=== PATIENT | female | born 1940 | race Hispanic/Latino ===

== ENCOUNTER 2016-04-25 06:27 | Observation (INO) | payer MEDICARE, OTHER ==
--- NOTE | 2016-04-23 14:47 | Anesthesia Consultation ---
Anesthesia Consult and Med Hx Date of service: 04/23/16 - Airway Anesthetic Teeth Evaluation: Partials (upper and lower) ROM Head & Neck: Adequate Mental/Hyoid Distance: Adequate Mallampati Class: Class I Intubation Access Assessment: Good - Pre-Operative Health Status ASA Pre-Surgery Classification: ASA2 Proposed Anesthetic Plan: Epidural, Spinal Nerve Block: Femoral - Pulmonary Hx Smoking: No Hx Sleep Apnea: No (RASHAWN PRE SCREEN LOW RISK) - Cardiovascular System Hx Hypertension: No Hx Coronary Artery Disease: No (high cholesterol, no meds) Hx Cardia Arrhythmia: Yes (occasional palpitations) - Central Nervous System Hx Psychiatric Problems: Yes (rare panic attacks) - Gastrointestinal Hx Gastroesophageal Reflux Disease: Yes (takes Zantac) - Other Systems Hx Cancer: Yes (h/o cervical CA 1998)
[~2016-04-25 06:27] MED LIST: VANCOMYCIN/NS 1 GM/250 ML 1 GM/250 ML BAG IV NR
[2016-04-25] MEDS ORDERED: NACL BACTERIOSTATIC INFILTRATI ONE (06:56)
[2016-04-25] MEDS ORDERED: VERSED IV NR ×2 (07:00→08:19)
[2016-04-25] MEDS ORDERED: PEPCID IV NR (07:00)
[2016-04-25] MEDS ORDERED: NEURONTIN PO NR (07:00)
[2016-04-25] MEDS ORDERED: LACTATED RINGERS 1,000 ML IV SCH (07:00)
[2016-04-25] MEDS ORDERED: MARCAINE-EPI 0.5%-1:200,000 INFILTRATI ONE ×5 (07:41→09:25)
[2016-04-25] MEDS ORDERED: DECADRON ONE (07:42)
[2016-04-25] MEDS ORDERED: CLONIDINE 1,000 MCG/10 ML VIAL EP ONE (07:50)
[2016-04-25] MEDS ORDERED: TRANEXAMIC ACID 1,000 MG in NACL 0.9% 100 ML IV NR (08:00)
[2016-04-25] MEDS ORDERED: DIPRIVAN 10 MG/ML 1,000 MG/100 ML BOTTLE IV ONE ×2 (08:33)
[2016-04-25] MEDS ORDERED: DIPRIVAN 10 MG/ML IV ONE (08:40)
[2016-04-25] MEDS ORDERED: ZOFRAN ONE (08:42)
[2016-04-25] MEDS ORDERED: HEPARIN 10,000 UNITS/10 ML ONE (08:54)
[2016-04-25] MEDS ORDERED: XYLOCAINE MPF 2% ONE ×3 (09:06→10:05)
[2016-04-25] MEDS ORDERED: NEOSPORIN GU IR ONE (09:33)
[2016-04-25] MEDS ORDERED: ADRENALIN ONE (09:47)
[2016-04-25] MEDS ORDERED: ePHEDrine SULFATE ONE (09:48)
[2016-04-25] MEDS ORDERED: DILAUDID IV PRN ×2 (09:52→11:49)
[2016-04-25] MEDS ORDERED: MORPHINE ONE (10:05)
[2016-04-25] MEDS ORDERED: SODIUM CHLORIDE FLUSH SYRINGE 10 ML IV PRN ×2 (11:46→11:49)
[2016-04-25] MEDS ORDERED: PERCOCET 5/325 PO PRN (11:46)
[2016-04-25] MEDS ORDERED: NACL 0.9% 1000 ML 1,000 ML IV SCH (12:00)
--- NOTE | 2016-04-25 13:06 | Post Anesthesia Evaluation ---
- Post Anesthesia Evaluation Patient Participated: Yes Airway Patent: Yes Stable Respiratory Function: Yes Nausea/Vomiting: No Temp > 96.8F: Yes Pain Manageable: Yes Adequeate Hydration: Yes Anesthesia Complications: No
--- NOTE | 2016-04-25 13:27 | Admit Criteria Form ---
Admission Criteria Documentation: AMBULATORY SURGERY EXCEPTION CRITERIA Ambulatory Surgery Exception Criteria ( Place 'X' for any and all applicable criteria): Surgery or procedure performed on ambulatory basis may require inpatient stay for[A] ANY ONE of the following(1)(2)(3)(4)(5)(6)(7)(8)(9): [X] I. A preoperative situation, condition, or finding that warrants inpatient stay as indicated by ANY ONE of the following: [X] a) Inpatient care needed because of severity of a disease or condition rather than the surgery (eg, severe cardiac or respiratory disease, severe infection) (15) (16 ) (17) (18) [] b) Emergent procedure (eg, angioplasty for acute ischemia)(19) [] c) Complex surgical approach or situation as indicated by ANY ONE of the following(3): [] i) Open approach needed instead of usual endoscopic, transcatheter, or other less invasive procedure [] ii) Difficult approach because of previous operation [] iii) Airway monitoring required after open neck procedures(20)(21) [] iv) Large mass requiring unusually extensive dissection [] v) Additional complicating feature requiring inpatient care (eg, drain management)(22(23): [] d) Major surgery in a pt with high anesthetic risk as indicated by ANY ONE of the following (2)(3)(5)(7)(8): [] i) ASA risk class III or higher (severe systemic disease impairing function) [D] [] ii) Advanced age (eg, older than 85 years)(14)(24) [] iii) Symptomatic heart failure(25) [] iv) Symptomatic asthma or COPD(8)(21) [] v) Morbid obesity with hemodynamic or respiratory problems(20)( 21)(26)(27) [] vi) Obstructive sleep apnea(20)(21) [] vii) Former premature infants who are younger than 60 weeks [] viii) High risk for severe postoperative abnormalities (eg, severe postoperative hypocalcemia after parathyroidectomy for severe hyperparathyroidism)(27)( 28) [] ix) Unstable angina(25) [] e) Drug-related risk requiring inpatient stay as indicated by ANY ONE of the following(5)(10)(14)(32)(33) [] i) Procedure requires discontinuing drugs or other therapy (eg , antiarrhythmic medication, antiseizure medication), which necessitates inpatient observation or treatment.(18)(31) [] ii) Major surgery and high risk drug use as indicated by ANY ONE of the following: [] 1) Active abuse of cocaine or similar drug [] 2) Monoamine oxidase inhibitor use [] 3) Other drug identified as posing risk [] f) Inadequate outpatient care situation as indicated by ANY ONE of the following(5)(10)(14)(32)(33) [] i) Patient lives remote from medical facility and procedure has urgent complication potential, and temporary nearby residence cannot be arranged [] ii) Patient will have postprocedure incapacitation and inadequate assistance at home, or alternative level of care cannot be arranged. [] iii) Patient will have long general anesthesia or procedure side effect resolution time, and competent person to stay with patient on first postoperative night at home or alternative level of care cannot be arranged. []iv) Other inadequate outpatient situation that cannot be handled by other means [] II. A perioperative event, condition, or finding that warrants inpatient stay as indicated by ANY ONE of the following (1)(2)(3): [] a) Inadequate physiologic recovery: cardiovascular, respiratory, or hemodynamic status not normal or near preoperative baseline(18) [] b) Hemodynamic instability [] c) Patient not alert with near normal or baseline mental status [] d) Temperature not normal or as expected and not appropriate for outpatient treatment of condition [] e) Ambulatory or appropriate activity level status not yet achieved post procedure [E](34)(35)(36) [] f) Operative site not appropriate (eg, unexpected or excessive drainage or bleeding) [] g) Postoperative effects not resolved or adequately managed (eg, significant pain or vomiting not appropriate for outpatient or next level of care)(10)(12) [] h) Complicating features requiring inpatient care as indicated by ANY ONE of the following(37): [] i) Severe complications of procedure (eg, bowel injury, airway compromise, vascular injury,severe hemorrhage) [] ii) Extensive (eg, dissection far beyond usual scope of procedure ) or prolonged (eg, 120 minutes beyond usual) surgery needed requiring inpatient postoperative care [] iii) Conversion to an open or complex procedure that requires inpatient care (eg, open vs laparoscopic cholecystectomy, abdominal vs vaginal hysterectomy)(38) [] iv) Comorbid condition or test result identified during or post procedure that requires inpatient care (7) [] v) Malignant hyperthermia(30) [] vi) Other complicating feature requiring inpatient care(22)(23) Inpatient stay may be needed until ALL of the following are present (1)(2)(3)(4) (5)(6)(10)(14)(33)(40): []a) Physiologic recovery: cardiovascular, respiratory, and hemodynamic status normal or near preoperative baseline []b) Hemodynamic stability []c) Patient alert, with near normal or baseline mental status []d) Temperature appropriate: patient afebrile or temperature appropriate for outpt treatment of condition []e) Activity level appropriate: ambulatory or appropriate activity level post procedure []f) Operative site appropriate as indicated by ALL of the following: []i) Site dry or with expected drainage []ii) Any blood noted is as expected for procedure. []g) Postoperative effects resolved or managed as indicated by ALL of the following: []i) Pain management appropriate for outpatient (or next level of) care(10) []ii) Minimal nausea and vomiting: if present, successfully treated with oral medication(12) []iii) Headache, dizziness, or drowsiness (if present) are mild. []h) Voiding status acceptable as indicated by ANY ONE of the following: []i) Voiding spontaneously []ii) No voiding but instructions given for follow-up in 6 to 8 hours []iii) Urinary catheter in place, and instructions given for follow-up []i) Complicating features requiring inpatient care manageable at a lower level of care(37) []j) Comorbid conditions manageable at a lower level of care(37) The original [employer] content created by [employer] has been revised. The portions of the content which have been revised are identified through the use of italic text or in bold, and [email or web address] has neither reviewed nor approved the modified material. All other unmodified content is copyright [employer]. Please see references footnoted in the original [employer] edition 2016 Admission Criteria Met: Yes
--- NOTE | 2016-04-25 15:47 | Progress Note ---
Subjective Date of service: 04/25/16 Principal diagnosis: S/P Total knee replacement R. Interval history: Pt had R TKR. Epidural was placed at L4-L5 interspace, and before removing the catheter lidocaine and morphine was given. Epidural catheter was pulled. On examining the catheter the tip of the catheter was missing. Notified Dr ZAVALA and we decided that the risk of surgery to locate the tip was greater. Objective - Constitutional Vitals: Vital Signs - 12hr 04/25/16 04/25/16 04/25/16 07:44 07:47 07:52 Temperature 98.7 F Pulse Rate 146 H 159 H 152 H Pulse Rate [ Right] Respiratory 16 12 13 Rate Blood Pressure 174/97 112/75 98/53 Blood Pressure [Right Arm] O2 Sat by Pulse 98 98 100 Oximetry 04/25/16 04/25/16 04/25/16 07:57 07:58 08:00 Temperature Pulse Rate 147 H 89 86 Pulse Rate [ Right] Respiratory 18 13 22 Rate Blood Pressure 95/58 99/61 126/70 Blood Pressure [Right Arm] O2 Sat by Pulse 100 99 96 Oximetry 04/25/16 04/25/16 04/25/16 08:02 08:07 08:12 Temperature Pulse Rate 85 83 84 Pulse Rate [ Right] Respiratory 20 17 17 Rate Blood Pressure 126/71 126/71 108/66 Blood Pressure [Right Arm] O2 Sat by Pulse 96 98 98 Oximetry 04/25/16 04/25/16 04/25/16 08:17 08:24 11:47 Temperature 98.7 F 97.2 F L Pulse Rate 79 146 H 65 Pulse Rate [ Right] Respiratory 16 16 12 Rate Blood Pressure 104/56 174/97 139/74 Blood Pressure [Right Arm] O2 Sat by Pulse 98 98 98 Oximetry 04/25/16 04/25/16 04/25/16 11:50 11:55 12:00 Temperature Pulse Rate 61 63 64 Pulse Rate [ Right] Respiratory 13 13 15 Rate Blood Pressure 135/71 147/71 139/71 Blood Pressure [Right Arm] O2 Sat by Pulse 96 98 99 Oximetry 04/25/16 04/25/16 04/25/16 12:05 12:20 13:00 Temperature 97.1 F L Pulse Rate 63 62 Pulse Rate [ 63 Right] Respiratory 16 17 18 Rate Blood Pressure 132/66 129/67 Blood Pressure 136/65 [Right Arm] O2 Sat by Pulse 97 96 97 Oximetry
[2016-04-25] MEDS ORDERED: VANCOMYCIN/NS 1 GM/250 ML 1 GM/250 ML BAG IV SCH (20:00)
--- NOTE | 2016-04-26 00:09 | Consultation ---
History of Present Illness - Reason for Consult Consult date: 04/25/16 Medical management Requesting physician: DONNY ZAVALA - History of Present Illness S/p R TKA -unicompartmental-Doing well. Past History Past Medical History: arthritis, GERD Past Surgical History: total knee replacement Social history: , lives with family Family history: no significant family history Medications and Allergies Allergies Allergy/AdvReac Type Severity Reaction Status Date / Time Penicillins Allergy SKIN Verified 04/10/16 17:27 REDNESS Home Medications Medication Instructions Recorded Confirmed Last Taken Type Calcium Carbonate [Calcium] 600 mg PO DAILY 04/10/16 04/25/16 04/23/16 History Fluticasone [Flonase] 1 spray NS PRN PRN 04/10/16 04/10/16 Unknown History Multivit-Min/FA/Lycopen/Lutein 1 tab PO DAILY 04/10/16 04/10/16 Unknown History [Centrum Silver Tablet] Om3/Dha/Epa/Cod Liver Oil/A/D3 1 cap PO DAILY 04/10/16 04/25/16 04/23/16 History [Cod Liver Oil Softgel] [place]-3 Fatty Acids/Fish Oil [Fish 1 cap PO DAILY 04/10/16 04/25/16 04/23/16 History Oil] Ranitidine HCl [Zantac 150 MG TAB] 150 mg PO DAILY 04/10/16 04/25/16 04/24/16 History Vitamin B Complex [Super B-50 1 cap PO DAILY 04/10/16 04/25/16 04/23/16 History Complex] Vitamin E Mixed [Vitamin E] 1,000 unit PO DAILY 04/10/16 04/25/16 04/23/16 History Active Meds: Active Medications Hydromorphone HCl (Dilaudid) 0.5 mg IV Q3H PRN PRN Reason: Pain , Severe (7-10) Lactated Ringer's (Lactated Ringers) 1,000 mls @ 100 mls/hr IV DIRECT ALMA Last Admin: 04/25/16 07:00 Dose: 100 mls/hr Sodium Chloride (Nacl 0.9% 1000 Ml) 1,000 mls @ 100 mls/hr IV DIRECT ALMA Oxycodone/Acetaminophen (Percocet 5/325) 2 tab PO Q4H PRN PRN Reason: Pain, Moderate (4-6) Rivaroxaban (Xarelto) 10 mg PO QDAY ALMA PRN Reason: Protocol Sodium Chloride (Sodium Chloride Flush Syringe 10 Ml) 10 ml IV PRN PRN PRN Reason: LINE FLUSH Review of Systems All systems: negative Exam - Constitutional Vitals: Temp Pulse Resp BP Pulse Ox 97.6 F 66 20 107/57 96 04/25/16 22:24 04/25/16 22:24 04/25/16 22:24 04/25/16 22:24 04/25/16 22:24 General appearance: Present: no acute distress, well-nourished - EENT Eyes: Present: PERRL ENT: hearing intact, clear oral mucosa - Neck Neck: Present: supple, normal ROM - Respiratory Respiratory effort: normal Respiratory: bilateral: CTA - Cardiovascular Heart Sounds: Present: S1 & S2. Absent: rub, click - Extremities Extremities: pulses symmetrical, No edema Peripheral Pulses: within normal limits - Abdominal General gastrointestinal: Present: soft, non-tender, non-distended, normal bowel sounds Female genitourinary: Present: normal - Integumentary Integumentary: Present: clear, warm, dry - Musculoskeletal Musculoskeletal: gait normal, strength equal bilaterally - Psychiatric Psychiatric: appropriate mood/affect, intact judgment & insight - Neurologic Neurologic: CNII-XII intact, moves all extremities Assessment and Plan - Patient Problems (1) Hx of total knee arthroplasty Current Visit: Yes Status: Acute Qualifiers: Laterality: right Qualified Code(s): Z96.651 - Presence of right artificial knee joint Plan to address problem: Post op doing well (2) Arthritis Current Visit: Yes Status: Chronic Plan to address problem: Percocet 5/325 po qid prn (3) GERD (gastroesophageal reflux disease) Current Visit: Yes Status: Chronic Qualifiers: Esophagitis presence: without esophagitis Qualified Code(s): K21.9 - Gastro -esophageal reflux disease without esophagitis Plan to address problem: cont Ranitidine (4) Pain management Current Visit: Yes Status: Acute Plan to address problem: Adequate (5) DVT prophylaxis Current Visit: Yes Status: Acute Plan to address problem: On ASA
[2016-04-26 08:55] VITALS: BP 98/68
--- NOTE | 2016-04-26 09:15 | Progress Note ---
Subjective Date of service: 04/26/16 Principal diagnosis: S/P Total knee replacement R. Interval history: 1st day after right partial knee replacement Patient is in the bed, mostly comfortable. Pain is well controlled with pain meds. Ambulated with physical therapist. No nausea or vomiting. No anesthesia complications Objective - Constitutional Vitals: Vital Signs - 12hr 04/25/16 04/26/16 04/26/16 22:24 04:00 08:53 Temperature 97.6 F 97.9 F 97.9 F Pulse Rate [ 66 58 L 61 Right] Respiratory 20 20 18 Rate Blood Pressure 107/57 104/54 98/68 [Right Arm] O2 Sat by Pulse 96 97 95 Oximetry
[2016-04-26] MEDS ORDERED: XARELTO PO SCH (10:00)
[2016-04-26] MEDS ORDERED: NON-FORMULARY (Ranitidine Hcl [Zantac 150 Mg Tab] 150 MG) PO SCH (10:00)
[2016-04-26] MEDS ORDERED: PEPCID PO SCH (10:00)
--- NOTE | 2016-04-26 14:34 | Discharge Summary ---
Providers - Providers Date of Admission: 04/25/16 11:46 Date of discharge: 04/26/16 Attending physician: DONNY ZAVALA 04/25/16 11:49 Consult to Case Management [CONS] Routine Services Needed at Discharge: Home Health Services Notified:: TROUBLE DISPATCHER Consult to Physician [CONS] Routine Consulting Provider: BELTRAN STOKES Reason For Exam: primary care Place consult to:: DR. STOKES Notified:: DR. STOKES Phone number called:: [phone] Was contact made?: Yes If yes, spoke with:: DR. STOKES Time called:: 12:58 Comment:: CONSULT COMPLETED - ZOË 04/25/16 11:50 Physical Therapy Evaluation and Treat [CONS] Routine Comment: avoid flexion, add, int rotation of operative hip Reason For Exam: total knee Primary care physician: NURIA OWENS Hospitalization Pertinent studies: S/p Rt TKA-did well No complications Disposition: DISCHARGED TO HOME OR SELFCARE - Discharge Diagnoses (1) Hx of total knee arthroplasty Status: Acute Qualifiers: Laterality: right Comment: PT as outpatient (2) Arthritis Status: Chronic Comment: NSAIDs as required (3) GERD (gastroesophageal reflux disease) Status: Chronic Qualifiers: Esophagitis presence: without esophagitis Qualified Code(s): K21.9 - Gastro -esophageal reflux disease without esophagitis (4) Pain management Status: Acute (5) DVT prophylaxis Status: Acute Core Measure Documentation - Palliative Care Palliative Care/ Comfort Measures: Not Applicable - Core Measures Any of the following diagnoses?: none Exam - Constitutional Vitals: Temp Pulse Resp BP Pulse Ox 97.9 F 61 18 98/68 95 04/26/16 08:53 04/26/16 08:53 04/26/16 08:53 04/26/16 08:53 04/26/16 08:53 Plan Follow up with: NURIA OWENS MD [Primary Care Provider] - 7 Days
--- NOTE | 2016-05-11 00:43 | Operative Report ---
PREOPERATIVE DIAGNOSIS: Right knee with medial compartment degenerative joint disease. POSTOPERATIVE DIAGNOSIS: Right knee with medial compartment degenerative joint disease. PROCEDURE PERFORMED: Right knee unicompartmental arthroplasty utilizing [employer] [place] System with size small cemented femur, size double A cemented tibia, 3 mm polyethylene insert. SURGEON: Armando Buenrostro M.D. PHYSICAL THERAPY ASSISTANT: Reji Luna CSA ANESTHESIA: Spinal epidural without adductor block. ESTIMATED BLOOD LOSS: Minimal. COMPLICATIONS: None. DESCRIPTION OF PROCEDURE: The patient underwent successful anesthesia as noted. Lower extremity was meticulously prepped and draped in the usual fashion, carefully positioned in the leg mcclelland, exsanguinated and tourniquet was inflated. Antibiotics and tranexamic acid were preadministered. A standard incision was made along the anterior aspect of the knee with a sharp dissection carried out through the skin and subcutaneous tissue. An arthrotomy extending from the superior pole of the patella to the tibial tubercle. Lateral compartment was well preserved as was the ACL and ____. She had ankylosis and felt to be an excellent candidate for unicompartmental arthroplasty. Standard technique at this time was utilized with appropriate exposure. Resection of the tibia with triplanar utilizing an extramedullary guide. This was then ____ to an intramedullary guide at the femur and posterior femoral resection carried out. The gaps were then appropriately balanced with Spigot reamers. Wounds were thoroughly irrigated. The trial reduction demonstrated excellent stability and fit with a 3 mm ____. After the keel had been prepared and the anterior chamfer made, the wounds were again irrigated. The components were placed. She had full range of motion stable with excellent stability, tracking noted. The wounds irrigated again. Local anesthetic infiltrated. The arthrotomy reapproximated with Ethibond sutures followed by Vicryl and Monocryl for subcutaneous tissue. An island dressing applied. She was taken to recovery in satisfactory condition having tolerated the procedure well. Tourniquet was released prior to wound closure with no significant bleeding encountered. JOB# [id number] HANH/MICHELINE
== END 2016-04-26 12:40 | disposition home or self-care (01) ==
LOC: OR 06:27 → 2B-SURG 11:46
PROVIDERS: ADMIT Orthopaedic Surgery; ATTEND Orthopaedic Surgery
DX: M17.11 Unilateral primary osteoarthritis, right knee (principal); K21.9 Gastro-esophageal reflux disease without esophagitis; Z96.651 Presence of right artificial knee joint
CPT/HCPCS: 27446; 62324; 64450; 88305; 88311; 96365; 96375; 97110; 97116; 97161; 97760; C1776; G0378; G8978; G8979; J0171; J0735; J1100; J1644; J2250; J2270; J2405; J2704; J3370; J7030; J7120

== ENCOUNTER 2018-12-02 11:32 | Outpatient (CLI) | payer MEDICARE, OTHER ==
--- NOTE | 2018-12-04 08:51 | Mammography Report ---
DIGITAL SCREENING MAMMOGRAM WITH CAD, 12/02/2018 INDICATION: Routine screening mammography. TECHNIQUE: Digital bilateral 2D mammography was obtained in the craniocaudal and mediolateral obliq ue projections. This examination was interpreted with the benefit of Computer-Aided Detection analysi s. COMPARISON: 11/29/2017 and 10/22/2014 FINDINGS: Breast Density: The breasts are heterogeneously dense, which may obscure small masses. There is no evidence of dominant mass, suspicious calcifications or architectural distortion in eithe r breast. IMPRESSION: No mammographic evidence of malignancy. Follow up recommendation: Routine yearly BI-RADS Category 1: Negative. A "normal" or negative report should not discourage follow up or biopsy of a clinically significant f inding. A written summary of these findings will be mailed to the patient. The patient will be entered into a mammography reporting system which will generate a reminder letter for the patient's next appointmen t at the appropriate interval. The [employer] recommends yearly mammograms starting at age 40 and continuing as l clifford as a woman is in good health. Breast MRI is recommended for women with an approximate 20-25% or greater lifetime risk of breast cancer, including women with a strong family history of breast or ova laure cancer or who have been treated for Hodgkin's disease. Signer Name: Rao Desir MD Signed: 12/04/2018 8:47 AM Workstation Name: [id number]
== END 2018-12-02 11:33 | disposition home or self-care (01) ==
LOC: SPVWC 11:32
PROVIDERS: ATTEND Internal Medicine
DX: Z12.31 Encounter for screening mammogram for malignant neoplasm of breast (principal); Z98.51 Tubal ligation status; Z90.710 Acquired absence of both cervix and uterus; M19.90 Unspecified osteoarthritis, unspecified site; I25.10 Atherosclerotic heart disease of native coronary artery without angina pectoris
CPT/HCPCS: 77067

== ENCOUNTER 2020-10-11 13:47 | Outpatient (CLI) | payer MEDICARE, OTHER ==
--- NOTE | 2020-10-11 14:54 | Mammography Report ---
BILATERAL DIGITAL SCREENING MAMMOGRAM WITH CAD HISTORY: Screening mammogram. TECHNIQUE: Routine digital mammographic imaging performed. This examination was interpreted with kt jefferson benefit of Computer-aided Detection analysis. COMPARISON: 12/02/2018, 11/29/2017. FINDINGS: Breast Density: scattered fibroglandular appearance of the breast tissue. Digital CC and MLO views demonstrate no mammographic evidence of malignancy. IMPRESSION: No mammographic evidence of malignancy. If the clinical examination remains stable, recommend bilate ral mammogram in approximately one year. BIRADS 1: Negative. FURTHER INFORMATION: According to the [employer], yearly mammograms are recommend ed starting at age 40 and continuing as long as a woman is in good health. Clinical Breast Exams shou ld be part of a periodic health exam-about every 3 years for women in their 20s and 30s and every yea r for women 40 and over. Breast self exam is an option for women starting in their 20s. Any breast ch tricia noted on a breast self exam should be reported promptly to the patient's healthcare provider. Br east MRI is recommended for women with an approximately 20-25% or greater lifetime risk of breast can cer, including women with a strong family history of breast or ovarian cancer and women who have been treated for Hodgkin's disease. A negative Mammography report should not discourage follow up or biopsy of a clinically significant f inding and/or abnormality. Dense breast tissue may obscure small neoplasms. The patient will be entered into a reminder system with a target due date for the next screening mamm ogram. Signer Name: Maury Fry MD Signed: 10/11/2020 2:49 PM Workstation Name: [id number]
== END 2020-10-11 13:48 | disposition home or self-care (01) ==
LOC: SPVWC 13:47
PROVIDERS: ATTEND Internal Medicine
DX: Z12.31 Encounter for screening mammogram for malignant neoplasm of breast (principal); N64.89 Other specified disorders of breast
CPT/HCPCS: 77067

== ENCOUNTER 2021-05-17 10:35 | Outpatient (CLI) | payer MEDICARE, OTHER ==
[2021-05-17 11:19] LABS: Blood Urea Nitrogen 21 mg/dL (7-17)
--- NOTE | 2021-05-17 13:24 | Cat Scan Report ---
CT ABDOMEN AND PELVIS WITH CONTRAST HISTORY: I89.0 ACQUIRED LYMPHEDEMA OMNI 300 100 ML COMPARISON: None. TECHNIQUE: Axial CT images were obtained through the abdomen and pelvis after 100 cc of Omnipaque 300 IV contrast. Sagittal and coronal reformatted images. All CT scans at this location are performed us ing CT dose reduction for ALARA by means of automated exposure control. FINDINGS: CT ABDOMEN: Lung Bases: The lung bases are clear. Heart size is borderline. A large hiatal hernia is present. Liver: No significant abnormality. Biliary: Cholelithiasis but no evidence for acute cholecystitis. No biliary dilatation. Spleen: No significant abnormality. Unenlarged. Pancreas: No significant abnormality. Adrenals: No significant abnormality. Kidneys: No significant abnormality. Lymphatics: No lymphadenopathy. Previous bilateral pelvic lymph node dissection changes are suspected , correlate with history. Vasculature: No significant abnormality. Bowel/Peritoneum: Large hiatal hernia is again noted. The stomach and small bowel loops are otherwise unremarkable. There is moderate diverticulosis of the distal colon. No evidence for acute inflammati on, obstruction or obvious mass. The appendix has been surgically removed. CT PELVIS: : Hysterectomy changes. The bladder, adnexal regions and vaginal cuff are unremarkable. Osseous Structures: Mild osteopenia. There is mild levocurvature of the lumbar spine with multilevel degenerative changes. No acute bony findings or bone lesion. Additional Findings: None IMPRESSION: No acute process is identified. Cholelithiasis. Large hiatal hernia. Surgical changes as described above. Signer Name: Sánchez Valderrama Jr, MD Signed: 05/17/2021 1:19 PM Workstation Name: [id number]
== END 2021-05-17 10:36 | disposition home or self-care (01) ==
LOC: CT 10:35
PROVIDERS: ATTEND Radiology Diagnostic Radiology
DX: K80.20 Calculus of gallbladder without cholecystitis without obstruction (principal); I87.323 Chronic venous hypertension (idiopathic) with inflammation of bilateral lower extremity; K44.9 Diaphragmatic hernia without obstruction or gangrene; K57.30 Diverticulosis of large intestine without perforation or abscess without bleeding; M85.88 Other specified disorders of bone density and structure, other site; I89.0 Lymphedema, not elsewhere classified; M47.816 Spondylosis without myelopathy or radiculopathy, lumbar region
CPT/HCPCS: 36415; 74177; 82565; 84520; Q9967